=== PATIENT | female | born 1995 | race Two or more races ===

== ENCOUNTER 2016-06-13 11:46 | Outpatient (CLI) ==
[2015-04-30 21:50] VITALS: BMI 47.6
[2016-06-13 13:57] LABS: BASOPHILS # (AUTO) 0.1 K/uL (0-0.2); BASOPHILS % (AUTO) 0.4 % (0.0-3.0); EOSINOPHILS # (AUTO) 0.7 K/ul (0.0-0.7); EOSINOPHILS % (AUTO) 5.5 % (0.0-7.0); HEMATOCRIT 40.7 % (37.0-47.0); HEMOGLOBIN 12.7 g/dl (12.0-16.0); IMMATURE GRANULOCYTE % (AUTO) 0.3 % (0.0-5.0); LYMPHOCYTES # (AUTO) 3.2 K/uL (0.60-3.4); LYMPHOCYTES % (AUTO) 26.2 (10.0-50.0); MEAN CORPUSCULAR HEMOGLOBIN 22.5 pg (27.0-31.0); MEAN CORPUSCULAR HGB CONC 31.2 (31.8-35.4); MONOCYTES # (AUTO) 0.8 K/uL (0.4-2.0); MONOCYTES % (AUTO) 6.3 (0-10); NEUTROPHILS # (AUTO) 7.5 K/ul (2.0-6.9); NEUTROPHILS % (AUTO) 61.3; PLATELET COUNT 316 10^3/uL (140-440); RED BLOOD COUNT 5.65 10^6/ul (4.20-5.40); WHITE BLOOD COUNT 12.29 K/ul (4.6-10.2)
[2016-06-13 14:32] LABS: ALBUMIN/GLOBULIN RATIO 0.89; ANION GAP 17.2; BILIRUBIN,TOTAL 0.31 mg/dL (0.00-1.20); BUN/CREATININE RATIO 21.25; CALCIUM 10.5 mg/dL (8.2-10.2); CHOL/HDL RATIO 3.1 (4.5-5.5); CREATININE 0.8 mg/dL (0.60-1.30); POTASSIUM 4.2 mmol/L (3.5-5.10); TOTAL PROTEIN 8.5 g/dL (6.4-8.2)
== END 2016-06-13 11:47 | disposition home or self-care (01) ==
LOC: LAB 11:46
PROVIDERS: ATTEND Nurse Practitioner Family
DX: E66.9 Obesity, unspecified (principal)
CPT/HCPCS: 36415; 80053; 80061; 84439; 84443; 85025

== ENCOUNTER 2016-10-08 17:18 | Emergency (ER) ==
[2016-10-08 17:27] VITALS: BP 125/80; TEMP 98.1; BMI 45.1
[2016-10-08] MEDS ORDERED: DUONEB NEB STA (17:38)
[2016-10-08 17:59] LABS: BILIRUBIN,URINE Negative (NEGATIVE); KETONES,URINE Negative (NEGATIVE); LEUKOCYTE ESTERASE ,URINE Negative (NEGATIVE); NITRITE,URINE Negative (NEGATIVE); PH,URINE 5.5 (5-9); PROTEIN,URINE Negative (NEGATIVE); URINE, BLOOD 2+ (NEGATIVE)
--- NOTE | 2016-10-08 18:00 | ED.PDOC ---
General ED Provider: Dr. ROXANNE VIDAL Chief Complaint: Shortness of Air Stated Complaint: cough for the past few days with some difficulty breathing. chest pain from the cough. was seen int he clinic for abdominal pain that she has had for week.s She told she had an ulcer and given some medicatins but has not helped. Time Seen by Physician: 17:25 Mode of Arrival: Walk-In Information Source: Patient Exam Limitations: No limitations [facility] and T[facility] Documentation Reviewed and Agree: Yes Respiratory Complaint Exam - Respiratory Complaint/Exam Onset/Duration: 2 days Symptoms Are: Still present Timing: Intermittent Initial Severity: Moderate Current Severity: Moderate Location: Chest Character: Reports: Productive cough Aggravating: Reports: URI, Weather Alleviating: Reports: None Associated Signs and Symptoms: Reports: Dyspnea, URI Related History: Denies: Similar episode History of Healthcare-Acquired Pneumonia: No Related Surgical History: Reports: None Pulmonary Embolism Risk Factors: None Cardiac Risk Factors: Reports: None Pseudomonas Risk Factors: Reports: None Tuberculosis Risk Factors: Reports: None Status Asthmaticus Risk Factors: Reports: None Home Oxygen Use: No Recent Stress Test: No Recent Echo/LV Function: No Current Antibiotic Use: No Current Asthma Medication Use: No Respiratory Distress: Mild Inadequate Respiratory Effort: No Dysphagia Present: No Stridor Present: No JVD Present: No Accessory Muscle Use: No Retractions: Not Present Diminished Breath Sounds: Yes Sinus Tenderness: None Grunting Respirations: No Kussmaul Respirations: No Differential Diagnoses: Asthma, Pneumonia, Bronchitis Review of Systems - Review Of Systems Constitutional: Reports: No symptoms Eyes: Reports: No symptoms Ears, Nose, Mouth, Throat: Reports: No symptoms Respiratory: Reports: Cough, Short of air, Wheezing Cardiac: Reports: Chest pain (with cough only. ) GI: Reports: Abdominal pain : Reports: No symptoms Musculoskeletal: Reports: No symptoms Skin: Reports: No symptoms Neurological: Reports: No symptoms Endocrine: Reports: No symptoms Hematologic/Lymphatic: Reports: No symptoms All Other Systems: Reviewed and Negative Past Medical History - Past Medical History Endocrine: Reports: None Cardiovascular: Reports: None Respiratory: Reports: Asthma Hematological: Reports: None Gastrointestinal: Reports: GERD Genitourinary: Reports: None Neuro/Psych: Reports: None Musculoskeletal: Reports: None Cancer: Reports: None Last Menstrual Period: last month - Surgical History General Surgical History: Reports: Tonsillectomy, Other (CYST/OVARY) - Family History Family History: Reports: Unknown - Social History Smoking Status: Current some day smoker Hx Substance Use: No Alcohol Screening: Occasionally - Immunizations Tetanus Shot up to Date: Yes Physical Exam - Physical Exam Appearance: Obese Ill-appearing: Moderate Pain Distress: Mild Eyes: MAXWELL, EOMI, Conjunctiva clear ENT: Ears normal, Nose normal, Oropharynx normal Neck: Supple Respiratory: Airway patent, Breath sounds equal, Respirations nonlabored, Wheezes GI/: Soft, Nontender, No masses, Bowel sounds normal, No Organomegaly Musculoskeletal: Normal strength, ROM intact, No edema, No calf tenderness Skin: Warm Neurological: Sensation intact, Motor intact, Reflexes intact, Cranial nerves intact, Alert, Oriented Psychiatric: Anxious Interpretation - Radiology Interpretation Radiology Interpretation By: Radiologist Radiology Results: Negative Exam Interpreted: CT Scan Critical Care Note - Critical Care Note Total Time (mins): 0 Course - Course Hematology/Chemistry: 10/08/16 17:50 10/08/16 17:50 Orders, Labs, Meds: Lab Review 10/08/16 17:50 WBC 9.03 RBC 5.44 H Hgb 12.2 Hct 39.3 MCV 72.2 L MCH 22.4 L MCHC 31.0 L RDW Coeff of Natty 15.9 H Plt Count 256 Immature Gran % (Auto) 0.3 Neut % (Auto) 58.5 Lymph % (Auto) 31.1 [place] % (Auto) 7.1 Eos % (Auto) 2.4 Baso % (Auto) 0.6 Immature Gran # (Auto) 0.0 Neut # 5.3 Lymph # 2.8 [place] # 0.6 Eos # 0.2 Baso # 0.1 D-Dimer (Manual) 367.97 Sodium 140 Potassium 4.1 Chloride 104 Carbon Dioxide 24 Anion Gap 16.1 BUN 14 Creatinine 0.77 Estimated GFR (MDRD) 95.00 BUN/Creatinine Ratio 18.18 Glucose 79 Calcium 9.8 Total Bilirubin 0.31 AST 26 ALT 22 Alkaline Phosphatase 75 Total Protein 8.4 H Albumin 4.1 Globulin 4.3 Albumin/Globulin Ratio 0.95 Amylase 31 Lipase 33 Serum , Qual Negative Urine Color Yellow Urine Clarity Clear Urine pH 5.5 Ur Specific [place] >=1.030 Urine Protein Negative Urine Glucose (UA) Negative Urine Ketones Negative Urine Blood 2+ Urine Nitrite Negative Urine Bilirubin Negative Urine Urobilinogen 0.2 Ur Leukocyte Esterase Negative Urine Microscopic RBC 0-2 Ur Squamous Epith Cells Not present Orders Category Date Time Status NEBULIZER TREATMENT Stat CARDIO 10/08/16 17:38 Completed AMYLASE Stat LAB 10/08/16 17:50 Completed CBC W/ AUTO DIFF Stat LAB 10/08/16 17:50 Completed COMPREHENSIVE METABOLIC PANEL Stat LAB 10/08/16 17:50 Completed D-DIMER Stat LAB 10/08/16 17:50 Completed HCG QUALITATIVE [SERUM ] Stat LAB 10/08/16 17:50 Completed LIPASE Stat LAB 10/08/16 17:50 Completed UA [URINALYSIS C & S IF INDICATED] Stat LAB 10/08/16 17:50 Completed Azithromycin [Zithromax] MEDS 10/08/16 19:02 Discontinued 500 mg PO ONCE STA Ipratropium/Albuterol Neb [Duoneb] MEDS 10/08/16 17:38 Discontinued 1 vial NEB ONCE STA Prednisone MEDS 10/08/16 19:09 Discontinued 40 mg PO ONCE STA CT ABD/PEL WO RENAL STONE PROT Stat RADS 10/08/16 17:[address] CHEST W/O CONTRAST Stat RADS 10/08/16 17:41 Completed Medications Discontinued Medications Generic Name Dose Route Start Last Admin Trade Name Anthony PRN Reason Stop Dose Admin Albuterol/Ipratropium 1 vial 10/08/16 17:38 10/08/16 18:03 Duoneb NEB 10/08/16 17:39 1 vial ONCE STA Administration Azithromycin 500 mg 10/08/16 19:02 10/08/16 19:09 Zithromax PO 10/08/16 19:03 500 mg ONCE STA Administration Prednisone 40 mg 10/08/16 19:09 10/08/16 19:15 Prednisone PO 10/08/16 19:10 40 mg ONCE STA Administration Vital Signs: Temp Pulse Resp BP Pulse Ox 10/08/16 17:20 98.1 F 94 H 20 125/80 96 Departure - Departure Time of Disposition: 19:10 Disposition: HOME SELF-CARE Discharge Problem: Bronchitis Instructions: Acute Bronchitis (ED) Condition: Stable Pt referred to PMD for follow-up: Yes Additional Instructions: quit smoking Take medications as prescribed Follow up with PCP in 3 days Prescriptions: Azithromycin [Zithromax] 250 mg PO DIRECTED #4 tablet Methylprednisolone [Medrol Dosepak] 4 mg PO DIRECTED #1 pkg Allergies/Adverse Reactions: Allergies drospirenone [From Cheli (28)] Adverse Reaction (Verified 10/08/16 17:27) ethinyl estradiol [From Cheli (28)] Adverse Reaction (Verified 10/08/16 17:27) Home Medications: Ambulatory Orders Azithromycin [Zithromax] 250 mg PO DIRECTED #4 tablet 10/08/16 Methylprednisolone [Medrol Dosepak] 4 mg PO DIRECTED #1 pkg 10/08/16 Disposition Discussed With: Patient
[2016-10-08 18:02] LABS: BASOPHILS # (AUTO) 0.1 K/uL (0-0.2); BASOPHILS % (AUTO) 0.6 % (0.0-3.0); EOSINOPHILS # (AUTO) 0.2 K/ul (0.0-0.7); EOSINOPHILS % (AUTO) 2.4 % (0.0-7.0); HEMATOCRIT 39.3 % (37.0-47.0); HEMOGLOBIN 12.2 g/dl (12.0-16.0); IMMATURE GRANULOCYTE % (AUTO) 0.3 % (0.0-5.0); LYMPHOCYTES # (AUTO) 2.8 K/uL (0.60-3.4); LYMPHOCYTES % (AUTO) 31.1 (10.0-50.0); MEAN CORPUSCULAR HEMOGLOBIN 22.4 pg (27.0-31.0); MEAN CORPUSCULAR VOLUME 72.2 fl (81.0-99.0); MONOCYTES # (AUTO) 0.6 K/uL (0.4-2.0); MONOCYTES % (AUTO) 7.1 (0-10); NEUTROPHILS # (AUTO) 5.3 K/ul (2.0-6.9); NEUTROPHILS % (AUTO) 58.5; PLATELET COUNT 256 10^3/uL (140-440); RED BLOOD COUNT 5.44 10^6/ul (4.20-5.40); WHITE BLOOD COUNT 9.03 K/ul (4.6-10.2)
[2016-10-08 18:05] LABS: ADD URINE MICROSCOPIC YES
[2016-10-08 18:13] LABS: SERUM PREGNANCY INTERNAL QC INTERNAL QC VALID
[2016-10-08 18:17] LABS: ALBUMIN 4.1 g/dL (3.4-5.0); ALBUMIN/GLOBULIN RATIO 0.95; ANION GAP 16.1; BILIRUBIN,TOTAL 0.31 mg/dL (0.00-1.20); BUN/CREATININE RATIO 18.18; CALCIUM 9.8 mg/dL (8.2-10.2); CREATININE 0.77 mg/dL (0.60-1.30); POTASSIUM 4.1 mmol/L (3.5-5.10); TOTAL PROTEIN 8.4 g/dL (6.4-8.2)
--- NOTE | 2016-10-08 18:57 | CT ---
EXAM: CT of the chest without contrast. HISTORY: Chest pain. PROCEDURE: Contiguous axial CT images of the chest without contrast with coronal and sagittal refor mats. FINDINGS: There is motion artifact which limits the exam. The heart is within normal limits in size . The thoracic aorta is normal in appearance. No infiltrate or consolidation. The bones and soft t issues are unremarkable. The adrenal glands and visualized portion of the liver are normal in appear ance. Impression: Negative CT of the chest.
--- NOTE | 2016-10-08 19:01 | CT ---
EXAM: CT abdomen pelvis without contrast HISTORY: Abdominal pain COMPARISON: 01/17/2015 TECHNIQUE: CT abdomen pelvis performed without intravenous contrast. Coronal and sagittal reformat miguelangle images obtained. FINDINGS: Please see separate report CT chest regarding findings in the lower chest. No free air. No acute abnormalities of the bones. There is mild degenerative change in the spine. Evaluation o rgan parenchyma limited without contrast. Liver appears normal. Gallbladder appears normal. Pancr eas appears normal. Spleen appears normal. Adrenals appear normal. Aorta normal in caliber. Uter us appears normal. Stomach appears normal. No dilated loops small bowel. Appendix appears normal. Colon unremarkable. Small fat-containing umbilical hernia. Probable punctate left renal calculus , coronal image 75. No hydronephrosis. No calculi visualized in the normal course of the ureters. Bladder decompressed and poorly evaluated. No ascites. Increase number of normal-sized mesenteric lymph nodes may represent mild mesenteric adenitis, unchanged Small fat-containing umbilical hernia. IMPRESSION: 1. No acute inflammatory process identified in the abdomen or pelvis. 2. Possible punctate left nephrolithiasis. No hydronephrosis. 3. 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
[2016-10-08] MEDS ORDERED: ZITHROMAX PO STA (19:02)
[2016-10-08] MEDS ORDERED: PREDNISONE PO STA (19:09)
== END 2016-10-08 19:26 | disposition home or self-care (01) ==
LOC: ED 17:18
DX: J20.9 Acute bronchitis, unspecified (principal); F17.210 Nicotine dependence, cigarettes, uncomplicated
CPT/HCPCS: 36415; 74176; 80053; 81001; 82150; 83690; 84703; 85025; 85379; 94640; 99284

== ENCOUNTER 2017-01-20 12:23 | Outpatient (CLI) ==
[2017-01-20 12:32] LABS: BASOPHILS % (AUTO) 0.4 % (0.0-3.0); EOSINOPHILS # (AUTO) 0.4 K/ul (0.0-0.7); EOSINOPHILS % (AUTO) 4.5 % (0.0-7.0); HEMATOCRIT 37.2 % (37.0-47.0); HEMOGLOBIN 11.6 g/dl (12.0-16.0); IMMATURE GRANULOCYTE % (AUTO) 0.1 % (0.0-5.0); LYMPHOCYTES % (AUTO) 24.6 (10.0-50.0); MEAN CORPUSCULAR HEMOGLOBIN 22.6 pg (27.0-31.0); MEAN CORPUSCULAR HGB CONC 31.2 (31.8-35.4); MEAN CORPUSCULAR VOLUME 72.5 fl (81.0-99.0); MONOCYTES # (AUTO) 0.5 K/uL (0.4-2.0); MONOCYTES % (AUTO) 5.9 (0-10); NEUTROPHILS # (AUTO) 5.3 K/ul (2.0-6.9); NEUTROPHILS % (AUTO) 64.5; PLATELET COUNT 250 10^3/uL (140-440); RED BLOOD COUNT 5.13 10^6/ul (4.20-5.40); WHITE BLOOD COUNT 8.17 K/ul (4.6-10.2)
[2017-01-20 12:47] LABS: ALBUMIN 3.5 g/dL (3.4-5.0); ALBUMIN/GLOBULIN RATIO 0.81; ANION GAP 12.9; BILIRUBIN,TOTAL 0.24 mg/dL (0.00-1.20); BUN/CREATININE RATIO 16.66; CALCIUM 9.9 mg/dL (8.2-10.2); CREATININE 0.72 mg/dL (0.60-1.30); POTASSIUM 3.9 mmol/L (3.5-5.10); TOTAL PROTEIN 7.8 g/dL (6.4-8.2)
== END 2017-01-20 12:24 | disposition home or self-care (01) ==
LOC: LAB 12:23
PROVIDERS: ATTEND Nurse Practitioner Family
DX: N93.9 Abnormal uterine and vaginal bleeding, unspecified (principal)
CPT/HCPCS: 36415; 80053; 85025

== ENCOUNTER 2017-02-21 17:12 | Emergency (ER) ==
[2017-02-21 17:16] VITALS: BP 145/94; TEMP 97.7; BMI 49.2
[2017-02-21 19:06] LABS: SERUM PREGNANCY INTERNAL QC INTERNAL QC VALID
[2017-02-21 19:36] LABS: BASOPHILS # (AUTO) 0.1 K/uL (0-0.2); BASOPHILS % (AUTO) 0.4 % (0.0-3.0); EOSINOPHILS # (AUTO) 0.4 K/ul (0.0-0.7); EOSINOPHILS % (AUTO) 3.8 % (0.0-7.0); HEMATOCRIT 37.5 % (37.0-47.0); HEMOGLOBIN 11.7 g/dl (12.0-16.0); IMMATURE GRANULOCYTE % (AUTO) 0.3 % (0.0-5.0); LYMPHOCYTES # (AUTO) 3.2 K/uL (0.60-3.4); LYMPHOCYTES % (AUTO) 27.6 (10.0-50.0); MEAN CORPUSCULAR HEMOGLOBIN 22.6 pg (27.0-31.0); MEAN CORPUSCULAR HGB CONC 31.2 (31.8-35.4); MEAN CORPUSCULAR VOLUME 72.4 fl (81.0-99.0); MONOCYTES # (AUTO) 0.8 K/uL (0.4-2.0); MONOCYTES % (AUTO) 6.5 (0-10); NEUTROPHILS # (AUTO) 7.1 K/ul (2.0-6.9); NEUTROPHILS % (AUTO) 61.4; PLATELET COUNT 269 10^3/uL (140-440); RED BLOOD COUNT 5.18 10^6/ul (4.20-5.40); WHITE BLOOD COUNT 11.65 K/ul (4.6-10.2)
--- NOTE | 2017-02-21 19:51 | ED.PDOC ---
General ED Provider: Dr. ROXANNE VIDAL Chief Complaint: Vaginal Bleeding Stated Complaint: Patient states that she started her period 2 days ago with spotting, Then yesterday it got heavy and used 7 pads yesterday and 8 pads today. Denies seeing any clots ro tissue. She states that she takes Metformin daily. she is sexually active and does not use any contraceptives. Time Seen by Physician: 19:00 Mode of Arrival: Walk-In Information Source: Patient Exam Limitations: No limitations Primary Care Provider: [facility] Nursing and Triage Documentation Reviewed and Agree: Yes Complaint Exam - UTI Female Complaint/Exam : 0 Para: 0 Hx Total # of Abortions (Spontaneous & Elective): 0 Review of Systems - Review Of Systems Constitutional: Reports: No symptoms Eyes: Reports: No symptoms Ears, Nose, Mouth, Throat: Reports: No symptoms Respiratory: Reports: No symptoms Cardiac: Reports: No symptoms GI: Reports: Abdominal pain (Like her periods. ) : Reports: Other (vaginal bleeding ) Musculoskeletal: Reports: No symptoms Skin: Reports: No symptoms Neurological: Reports: No symptoms Endocrine: Reports: No symptoms Hematologic/Lymphatic: Reports: No symptoms All Other Systems: Reviewed and Negative Past Medical History - Past Medical History Endocrine: Reports: None Cardiovascular: Reports: None Respiratory: Reports: Asthma Hematological: Reports: None Gastrointestinal: Reports: GERD Genitourinary: Reports: None Neuro/Psych: Reports: None Musculoskeletal: Reports: None Cancer: Reports: None Last Menstrual Period: NOW Other Pertinent Past Medical History: PCOS - Surgical History General Surgical History: Reports: Tonsillectomy, Other (CYST/OVARY) - Family History Family History: Reports: Unknown - Social History Smoking Status: Current some day smoker Hx Substance Use: No Alcohol Screening: Occasionally Physical Exam - Physical Exam Appearance: Ill-appearing, Obese Ill-appearing: Mild Pain Distress: Moderate Eyes: MAXWELL, EOMI, Conjunctiva clear ENT: Oropharynx normal Respiratory: Airway patent, Breath sounds clear, Breath sounds equal, Respirations nonlabored Cardiovascular: RRR, Pulses normal, No rub, No murmur GI/: Soft, No masses, Bowel sounds normal, No Organomegaly, Tender ( suprapubic area ) Musculoskeletal: Normal strength, ROM intact, No edema, No calf tenderness Skin: Warm, Dry, Normal color Neurological: Sensation intact, Motor intact, Reflexes intact, Alert, Oriented Psychiatric: Affect appropriate, Mood appropriate Critical Care Note - Critical Care Note Total Time (mins): 0 Course - Course Hematology/Chemistry: 02/21/17 18:45 Orders, Labs, Meds: Lab Review 02/21/17 02/21/17 18:45 18:48 WBC 11.65 H RBC 5.18 Hgb 11.7 L Hct 37.5 MCV 72.4 L MCH 22.6 L MCHC 31.2 L RDW Coeff of Natty 15.9 H Plt Count 269 Immature Gran % (Auto) 0.3 Neut % (Auto) 61.4 Lymph % (Auto) 27.6 [place] % (Auto) 6.5 Eos % (Auto) 3.8 Baso % (Auto) 0.4 Immature Gran # (Auto) 0.0 Neut # 7.1 H Lymph # 3.2 [place] # 0.8 Eos # 0.4 Baso # 0.1 Serum , Qual Negative Orders Category Date Time Status CBC W/ AUTO DIFF Stat LAB 02/21/17 18:45 Completed SERUM TEST [SERUM ] Stat LAB 02/21/17 18:48 Completed Vital Signs: Temp Pulse Resp BP Pulse Ox 02/21/17 17:12 97.7 F 97 H 20 145/94 H 98 Departure - Departure Time of Disposition: 19:49 Disposition: HOME SELF-CARE Discharge Problem: Bleeding from vagina, Dysmenorrhea Instructions: Dysfunctional Uterine Bleeding (ED), Dysmenorrhea (ED) Condition: Fair Pt referred to PMD for follow-up: Yes Additional Instructions: Follow up with PCP in 3 day with PCP or OBGYN. Return if worse. Allergies/Adverse Reactions: Allergies drospirenone [From Cheli (28)] Adverse Reaction (Verified 02/21/17 17:16) ethinyl estradiol [From Cheli (28)] Adverse Reaction (Verified 02/21/17 17:16) Home Medications: Ambulatory Orders Control 1 tab PO DAILY 01/20/17 Montelukast Sodium [Singulair] 10 mg PO DAILY 01/20/17 Metformin HCl [Metformin HCl ER] 500 mg PO BID 02/21/17 Disposition Discussed With: Patient, Family
== END 2017-02-21 20:00 | disposition home or self-care (01) ==
LOC: ED 17:12
DX: N94.6 Dysmenorrhea, unspecified (principal); N93.8 Other specified abnormal uterine and vaginal bleeding; F17.210 Nicotine dependence, cigarettes, uncomplicated
CPT/HCPCS: 36415; 84703; 85025; 99282

== ENCOUNTER 2017-05-03 08:25 | Outpatient (CLI) ==
--- NOTE | 2017-05-03 10:00 | CT ---
EXAM: CT ABDOMEN AND PELVIS HISTORY: Right upper abdominal tenderness TECHNIQUE: CT abdomen and pelvis with and without intravenous contrast. Images were reconstructed u sing 5 mm section thickness. Reformations were prepared. 75 mL Omnipaque. COMPARISON: 01/17/2015 FINDINGS: The liver, spleen, gallbladder, pancreas and adrenal glands appear normal. There is a punctate 2 mm calcification in the upper left kidney which could represent a renal stone. The kidneys were otherwi se unremarkable with no hydronephrosis and there was normal contrast enhancement. The ureters are cl ear. Normal abdominal aorta. Stomach is unremarkable. Normal appendix. Normal bowel gas pattern. The uterus is normal. Mildly p rominent left ovary suggesting several small follicles. Urinary bladder is normal. There is no asci santhosh or inflammatory infiltration of the abdominal fat. Ventral abdominal wall is intact without herniation. There are mild degenerative endplate changes of the thoracic spine, somewhat unusual for age although stable since previous exam. Lung bases are anjali ar. No pneumoperitoneum. IMPRESSION: 1. No acute intra-abdominal or pelvic abnormality or obvious etiology for the patient's symptoms. 2. Tiny left renal calculus without hydronephrosis or ureteral obstruction. 3. There are mild degenerative endplate changes of the thoracic spine, somewhat unusual for age alth ough stable since previous exam.
== END 2017-05-03 08:26 | disposition home or self-care (01) ==
LOC: RAD 08:25
PROVIDERS: ATTEND Nurse Practitioner Family
DX: R10.811 Right upper quadrant abdominal tenderness (principal); R10.9 Unspecified abdominal pain; R11.0 Nausea
CPT/HCPCS: 36415; 80053; 81001; 81025; 82150; 83690; 85025; 86677

== ENCOUNTER 2017-12-05 07:49 | Emergency (ER) ==
[2017-12-05 07:57] VITALS: BP 134/85; TEMP 95.8; BMI 34.2
--- NOTE | 2017-12-05 08:21 | ED.PDOC ---
General ED Provider: Dr. ODALIS CORBIN Chief Complaint: Abdominal Pain Stated Complaint: Abdominal pain -. Located mid epigastrium moving into Lt upper and lower quadrant. Mildly nausea. Onset X 4 days. Last menses 2 months. Pain similar to previous Renal stone on Rt side Time Seen by Physician: 08:10 Mode of Arrival: Walk-In Information Source: Patient Exam Limitations: No limitations [facility] Documentation Reviewed and Agree: Yes Does patient meet sepsis criteria?: No System Inflammatory Response Syndrome: Not Applicable Sepsis Protocol: For patient's 13 years and over: Temp is 96.8 and below OR 101 and greater Pulse >90 BPM Resp >20/minute Acutely Altered Mental Status Are patient's symptoms suggestive of a new infection, such as: -Pneumonia -Skin, Soft Tissue -Endocarditis -UTI -Bone, Joint Infection -Implantable Device -Acute Abdominal Infection -Wound Infection -Meningitis -Blood Stream Catheter Infection -Unknown GI Complaint Exam - Abdominal Pain Complaint/Exam Onset: Gradual Duration: 24 hrs Symptoms Are: Still present Timing: Constant Initial Severity: Moderate Current Severity: Moderate Location of Pain: LUQ, Epigastric Radiates To: Reports: Flank Character: Reports: Aching, Throbbing, Cramping, Colicky Aggravating: Reports: None Alleviating: Reports: Rest Associated Signs and Symptoms: Reports: Diaphoresis, Back pain, Nausea Related History: Reports: Similar episode AAA Risk Factors: Reports: None Cardiac Risk Factors: Reports: None Ectopic Risk Factors: Reports: None Ovarian Torsion Risk Factors: Reports: None Surgical Obstruction Risk Factors: Reports: None Related Surgical History: Reports: None Abdominal Findings: Present: CVA Tenderness (lt flank tenderness), Other Differential Diagnoses: Renal Colic, Ureteral Stone Review of Systems - Review Of Systems Constitutional: Reports: Loss of appetite Eyes: Reports: No symptoms Ears, Nose, Mouth, Throat: Reports: No symptoms Respiratory: Reports: No symptoms Cardiac: Reports: No symptoms GI: Reports: Abdominal pain, Nausea : Reports: Flank pain Musculoskeletal: Reports: No symptoms Skin: Reports: No symptoms Neurological: Reports: No symptoms Endocrine: Reports: No symptoms Hematologic/Lymphatic: Reports: No symptoms All Other Systems: Reviewed and Negative Past Medical History - Past Medical History Endocrine: Reports: None Cardiovascular: Reports: None Respiratory: Reports: Asthma Hematological: Reports: None Gastrointestinal: Reports: GERD Genitourinary: Reports: None Neuro/Psych: Reports: None Musculoskeletal: Reports: None Cancer: Reports: None Last Menstrual Period: 2 months Other Pertinent Past Medical History: PCOS - Surgical History General Surgical History: Reports: Tonsillectomy, Other (CYST/OVARY) - Family History Family History: Reports: Unknown - Social History Smoking Status: Current every day smoker, Light tobacco smoker Hx Substance Use: No Alcohol Screening: Occasionally Physical Exam - Physical Exam Appearance: Ill-appearing, Obese Ill-appearing: Moderate Pain Distress: Severe Eyes: MAXWELL, EOMI, Conjunctiva clear ENT: Ears normal, Nose normal, Oropharynx normal Respiratory: Airway patent, Breath sounds clear, Breath sounds equal, Respirations nonlabored Cardiovascular: RRR, Pulses normal, No rub, No murmur GI/: Soft, Tender, Bowel sounds hypoactive Musculoskeletal: Normal strength, ROM intact, No edema, No calf tenderness Skin: Warm, Dry, Normal color Neurological: Sensation intact, Motor intact, Reflexes intact, Cranial nerves intact, Alert, Oriented Psychiatric: Affect appropriate, Mood appropriate Interpretation - Radiology Interpretation Radiology Interpretation By: Radiologist Radiology Results: Positive (lt ureteral stone) Critical Care Note - Critical Care Note Total Time (mins): 0 Course - Course Hematology/Chemistry: 12/05/17 08:32 12/05/17 08:32 Orders, Labs, Meds: Lab Review 12/05/17 12/05/17 12/05/17 08:05 08:09 08:26 WBC RBC Hgb Hct MCV MCH MCHC RDW Coeff of Natty Plt Count Immature Gran % (Auto) Neut % (Auto) Lymph % (Auto) [place] % (Auto) Eos % (Auto) Baso % (Auto) Immature Gran # (Auto) Neut # (Auto) Lymph # (Auto) [place] # (Auto) Eos # (Auto) Baso # (Auto) Sodium Potassium Chloride Carbon Dioxide Anion Gap BUN Creatinine Estimated GFR (MDRD) BUN/Creatinine Ratio Glucose Calcium Total Bilirubin AST ALT Alkaline Phosphatase Total Protein Albumin Globulin Albumin/Globulin Ratio Lipase Urine Color [place] Urine Clarity Cloudy Urine pH 5.5 Ur Specific [place] >=1.030 Urine Protein 2+ Urine Glucose (UA) Negative Urine Ketones Trace Urine Blood 3+ Urine Nitrite Negative Urine Bilirubin 1+ Urine Urobilinogen 0.2 Ur Leukocyte Esterase Negative Urine Microscopic RBC Tntc Ur Squamous Epith Cells Not present Urine Test Negative Urine Opiates Screen Negative Ur Oxycodone Screen Negative Urine Methadone Screen Negative Ur Propoxyphene Screen Negative Ur Barbiturates Screen Negative U Tricyclic Antidepress Negative Ur Phencyclidine Scrn Negative Ur Amphetamine Screen Negative U Methamphetamines Scrn Negative U Benzodiazepines Scrn Negative Urine Cocaine Screen Negative U Cannabinoids Screen Positive 12/05/17 12/05/17 08:32 08:32 WBC 11.05 H RBC 5.39 Hgb 11.6 L Hct 38.0 MCV 70.5 L MCH 21.5 L MCHC 30.5 L RDW Coeff of Natty 16.3 H Plt Count 241 Immature Gran % (Auto) 0.3 Neut % (Auto) 64.1 Lymph % (Auto) 26.4 [place] % (Auto) 6.2 Eos % (Auto) 2.6 Baso % (Auto) 0.4 Immature Gran # (Auto) 0.0 Neut # (Auto) 7.1 H Lymph # (Auto) 2.9 [place] # (Auto) 0.7 Eos # (Auto) 0.3 Baso # (Auto) 0.0 Sodium 137 Potassium 3.9 Chloride 102 Carbon Dioxide 26 Anion Gap 12.9 BUN 15 Creatinine 0.85 Estimated GFR (MDRD) 84.00 BUN/Creatinine Ratio 17.64 Glucose 96 Calcium 10.0 Total Bilirubin 0.6 AST 20 ALT 18 Alkaline Phosphatase 74 Total Protein 8.0 Albumin 3.7 Globulin 4.3 Albumin/Globulin Ratio 0.86 Lipase 28 Urine Color Urine Clarity Urine pH Ur Specific [place] Urine Protein Urine Glucose (UA) Urine Ketones Urine Blood Urine Nitrite Urine Bilirubin Urine Urobilinogen Ur Leukocyte Esterase Urine Microscopic RBC Ur Squamous Epith Cells Urine Test Urine Opiates Screen Ur Oxycodone Screen Urine Methadone Screen Ur Propoxyphene Screen Ur Barbiturates Screen U Tricyclic Antidepress Ur Phencyclidine Scrn Ur Amphetamine Screen U Methamphetamines Scrn U Benzodiazepines Scrn Urine Cocaine Screen U Cannabinoids Screen Orders Category Date Time Status EKG-(ED ONLY) Stat CARDIO 12/05/17 08:23 Completed NPO REMINDER: IMAGING ONCE CARE 12/05/17 08:23 Completed IV [ED IV/MEDIPORT/POWERPORT] .ONCE EMERGENCY 12/05/17 08:23 Active CBC W/ AUTO DIFF Stat LAB 12/05/17 08:32 Completed CMP [COMPREHENSIVE METABOLIC PANEL] Stat LAB 12/05/17 08:32 Completed LIPASE Stat LAB 12/05/17 08:32 Completed URINALYSIS C & S IF INDICATED Stat LAB 12/05/17 08:05 Completed URINE DRUG SCREEN (RAPID FOR ED) [DRUG SCREEN, URINE, LAB 12/05/17 08:26 Completed RAPID] Stat URINE Stat LAB 12/05/17 08:09 Completed 0.9 % Sodium Chloride [Saline Flush] MEDS 12/05/17 08:22 Active 1 syr IVF PRN PRN Ketorolac Tromethamine [Toradol] MEDS 12/05/17 08:26 Discontinued 30 mg IVP ONCE STA Sodium Chloride 0.9% [Sodium Chloride] 1,000 ml MEDS 12/05/17 08:24 Discontinued IV BOLUS Tamsulosin HCl [Flomax] MEDS 12/05/17 09:43 Stat 0.4 mg PO ONCE STA CT ABD/PEL WO RENAL STONE PROT Stat RADS 12/05/17 08:37 Completed Medications Generic Name Dose Route Start Last Admin Trade Name Freq PRN Reason Stop Dose Admin Sodium Chloride 1 syr 12/05/17 08:22 12/05/17 08:57 Saline Flush IVF 1 syr PRN PRN Administration To flush IV Discontinued Medications Generic Name Dose Route Start Last Admin Trade Name Freq PRN Reason Stop Dose Admin Sodium Chloride 1,000 mls @ 1,000 mls/hr 12/05/17 08:24 12/05/17 08:57 Sodium Chloride IV 12/05/17 09:23 1,000 mls/hr BOLUS STA Administration Ketorolac Tromethamine 30 mg 12/05/17 08:26 12/05/17 08:58 Toradol IVP 12/05/17 08:27 30 mg ONCE STA Administration Tamsulosin HCl 0.4 mg 12/05/17 09:43 Flomax PO 12/05/17 09:44 ONCE STA Vital Signs: Temp Pulse Resp BP Pulse Ox 12/05/17 07:50 95.8 F L 70 16 134/85 98 Departure - Departure Time of Disposition: 09:55 Disposition: HOME SELF-CARE Discharge Problem: Ureterolithiasis Instructions: Kidney Stones (ED) Condition: Good Pt referred to PMD for follow-up: Yes IPMP verified?: No Additional Instructions: Strain all urine for possible stone passage Retain stone if passes Take meds as directed-Flomax to ease stone passage and Toradol for pain control. See Family Physician tomorrow and obtain referral for urological consult for possible outpatient Stone removal if stone does not pass Prescriptions: Ketorolac Tromethamine [Toradol] 10 mg PO Q6H PRN #20 tablet PRN Reason: Flank pain Tamsulosin HCl [Flomax] 0.4 mg PO DAILY #7 cap.er.24h Allergies/Adverse Reactions: Allergies drospirenone [From Cheli (28)] Adverse Reaction (Verified 12/05/17 07:59) ethinyl estradiol [From Cheli (28)] Adverse Reaction (Verified 12/05/17 07:59) Home Medications: Ambulatory Orders Control 1 tab PO DAILY 01/20/17 Montelukast Sodium [Singulair] 10 mg PO DAILY 01/20/17 Ketorolac Tromethamine [Toradol] 10 mg PO Q6H PRN #20 tablet 12/05/17 Tamsulosin HCl [Flomax] 0.4 mg PO DAILY #7 cap.er.24h 12/05/17 Disposition Discussed With: Patient, Family
[2017-12-05] MEDS ORDERED: SODIUM CHLORIDE 1,000 ML IV STA (08:24)
[2017-12-05] MEDS ORDERED: TORADOL IVP STA (08:26)
--- NOTE | 2017-12-05 09:14 | CT ---
EXAM: CT ABDOMEN AND PELVIS HISTORY: Left flank/abdominal pain TECHNIQUE: CT abdomen and pelvis without intravenous contrast. Images were reconstructed using 3 mm section thickness. Reformations were prepared. COMPARISON: 10/08/2016 FINDINGS: There is a tiny upper left ureteral calculus measuring about 3 x 2 x 2 mm located essentially at the ureteropelvic junction. No other ureteral stones are seen. There is mild left hydronephrosis. No i ntrarenal calculi are identified currently. Urinary bladder is normal. No perinephric fat stranding or ascites. Within limits of this unenhanced exam, the liver and spleen appear normal. The gallbladder, pancreas and adrenal glands appear normal. Normal abdominal aorta. Stomach and appendix are normal. Bowel ga s pattern is within normal limits. Uterus is within normal limits. Ventral abdominal wall is intact . Early degenerative endplate disease at T11/T12. Lung bases are clear. No pneumoperitoneum. IMPRESSION: 1. Small calculus of the upper left ureter. 2. Early degenerative disc disease T11/T12, unusual for age.
[2017-12-05] MEDS ORDERED: FLOMAX PO STA (09:43)
[2017-12-05] MEDS ORDERED: FLOMAX PO SCH (10:00)
== END 2017-12-05 10:10 | disposition home or self-care (01) ==
LOC: ED 07:49
DX: N20.1 Calculus of ureter (principal); Z87.442 Personal history of urinary calculi; F17.210 Nicotine dependence, cigarettes, uncomplicated
CPT/HCPCS: 36415; 74176; 80053; 80306; 81001; 81025; 83690; 85025; 93005; 93010; 96361; 96374; 99283

== ENCOUNTER 2018-01-24 15:14 | Emergency (ER) ==
[2018-01-24 15:26] VITALS: BP 121/77; TEMP 96.5; BMI 50.5
[2018-01-24 15:50] LABS: URINE PREGNANCY TEST NEGATIVE (NEGATIVE)
--- NOTE | 2018-01-24 16:32 | CT ---
EXAM: CT ABDOMEN AND PELVIS HISTORY: Periumbilical pain. Patient gave a history of umbilicus leaking blood and puss. TECHNIQUE: CT abdomen and pelvis without intravenous contrast. Images were reconstructed using 3 mm section thickness. Reformations were prepared. COMPARISON: 05/03/2017 FINDINGS: Diagnostic limitations exist without including contrast enhanced images. No focal hepatic or splenic lesions. Gallbladder, pancreas and adrenal glands are within normal limits. Kidneys and ureters ar e unremarkable. Normal abdominal aorta. Stomach is normal. Normal appendix. General bowel gas pattern and appearance is within normal limit s. Uterus and urinary bladder appear normal. No ascites or inflammatory infiltration of the abdomin al fat. No significant ventral abdominal wall defect. The umbilicus demonstrates moderate skin thickening wh ich is suggestive of cellulitis given the patient's history. A small underlying abscess at this leve l is not excluded although not definitely demonstrated. No regional soft tissue gas. The bones reve al stable degenerative endplate changes of the thoracic spine, unusual for age. Lung bases are free of infiltrate. No pneumoperitoneum. IMPRESSION: 1. The umbilicus demonstrates moderate skin thickening which is suggestive of cellulitis given the p atient's history. A small underlying abscess at this level is not excluded although not definitely d emonstrated. No regional soft tissue gas. 2. Early degenerative endplate disease thoracic spine.
--- NOTE | 2018-01-24 16:46 | ED.PDOC ---
General ED Provider: Dr. TAYLA ROBERTO Chief Complaint: Wound Check Stated Complaint: periumbilical drainage and pain Time Seen by Physician: 15:30 (seen with neha lau at all times ) Mode of Arrival: Walk-In Information Source: Patient Exam Limitations: No limitations Primary Care Provider: NOEMI [facility] Nursing and Triage Documentation Reviewed and Agree: Yes Does patient meet sepsis criteria?: No If yes, has appropriate treatment been initiated?: No System Inflammatory Response Syndrome: Not Applicable Sepsis Protocol: For patient's 13 years and over: Temp is 96.8 and below OR 101 and greater Pulse >90 BPM Resp >20/minute Acutely Altered Mental Status Are patient's symptoms suggestive of a new infection, such as: -Pneumonia -Skin, Soft Tissue -Endocarditis -UTI -Bone, Joint Infection -Implantable Device -Acute Abdominal Infection -Wound Infection -Meningitis -Blood Stream Catheter Infection -Unknown GI Complaint Exam - Abdominal Pain Complaint/Exam Onset: Gradual Duration: 1 day Symptoms Are: Still present Timing: Intermittent Initial Severity: Mild Current Severity: Mild Location of Pain: Discrete (periumblical) Radiates To: Denies: Chest, Back, Flank, LLQ, RLQ, Inguinal Character: Reports: Dull Aggravating: Reports: None Alleviating: Reports: None Associated Signs and Symptoms: Denies: Diaphoresis, Fever, Cough, Chest pain, Dizziness, Back pain, Constipation, Blood in stool, Dysuria, Urinary frequency, Decreased urine output, Decreased appetite, Vaginal bleeding, Vaginal discharge , Nausea, Vomiting, Diarrhea, Sore throat, Decreased activity AAA Risk Factors: Reports: None Cardiac Risk Factors: Reports: None Ectopic Risk Factors: Reports: None Ovarian Torsion Risk Factors: Reports: Reproductive age Surgical Obstruction Risk Factors: Reports: None Related Surgical History: Reports: None Patient Rh Status: Unknown Abdominal Findings: Present: None Differential Diagnoses: Appendicitis, Bowel Obstruction, Constipation Review of Systems - Review Of Systems Constitutional: Reports: No symptoms Eyes: Reports: No symptoms Ears, Nose, Mouth, Throat: Reports: No symptoms Respiratory: Reports: No symptoms Cardiac: Reports: No symptoms GI: Reports: Abdominal pain : Reports: No symptoms Musculoskeletal: Reports: No symptoms Skin: Reports: No symptoms Neurological: Reports: No symptoms Endocrine: Reports: No symptoms Hematologic/Lymphatic: Reports: No symptoms All Other Systems: Reviewed and Negative Past Medical History - Past Medical History Previously Healthy: Yes Endocrine: Reports: None Cardiovascular: Reports: None Respiratory: Reports: Asthma Hematological: Reports: None Gastrointestinal: Reports: GERD Genitourinary: Reports: None Neuro/Psych: Reports: None Musculoskeletal: Reports: None Cancer: Reports: None Last Menstrual Period: 3 months ago Other Pertinent Past Medical History: PCOS - Surgical History General Surgical History: Reports: Tonsillectomy, Other (CYST/OVARY) - Family History Family History: Reports: Unknown - Social History Smoking Status: Current every day smoker, Light tobacco smoker Hx Substance Use: No Alcohol Screening: Occasionally Physical Exam - Physical Exam Appearance: Well-appearing, No pain distress, Well-nourished Eyes: MAXWELL, EOMI, Conjunctiva clear ENT: Ears normal, Nose normal, Oropharynx normal Respiratory: Airway patent, Breath sounds clear, Breath sounds equal, Respirations nonlabored Cardiovascular: RRR, Pulses normal, No rub, No murmur GI/: Soft, Nontender, No masses, Bowel sounds normal, No Organomegaly Musculoskeletal: Normal strength, ROM intact, No edema, No calf tenderness Skin: Warm, Dry, Normal color Neurological: Sensation intact, Motor intact, Reflexes intact, Cranial nerves intact, Alert, Oriented Psychiatric: Affect appropriate, Mood appropriate Critical Care Note - Critical Care Note Total Time (mins): 0 Course - Course Orders, Labs, Meds: Lab Review 01/24/18 15:42 Urine Test Negative Orders Category Date Time Status URINE Stat LAB 01/24/18 15:42 Completed WOUND CULTURE Stat LAB 01/24/18 15:[address] ABDOMEN/PELVIS WO CONTRAST Stat RADS 01/24/18 15:34 Completed Vital Signs: Temp Pulse Resp BP Pulse Ox 01/24/18 15:19 96.5 F L 85 20 121/77 98 Departure - Departure Time of Disposition: 16:46 Disposition: HOME SELF-CARE Discharge Problem: Cellulitis of abdominal wall Abdominal pain Qualifiers: Abdominal location: unspecified location Qualified Code(s): R10.9 - Unspecified abdominal pain Instructions: Cellulitis (ED), Abdominal Pain (ED) Condition: Good Pt referred to PMD for follow-up: Yes IPMP verified?: No Prescriptions: Amoxicillin 500 mg PO Q6HR #30 tablet Ciprofloxacin HCl [Cipro] 500 mg PO BID #10 tablet Allergies/Adverse Reactions: Allergies drospirenone [From Cheli (28)] Adverse Reaction (Verified 10/17/18 15:26) ethinyl estradiol [From Cheli (28)] Adverse Reaction (Verified 01/24/18 15:26) Home Medications: Ambulatory Orders Control 1 tab PO DAILY 01/20/17 Montelukast Sodium [Singulair] 10 mg PO DAILY 01/20/17 Amoxicillin 500 mg PO Q6HR #30 tablet 01/24/18 Ciprofloxacin HCl [Cipro] 500 mg PO BID #10 tablet 01/24/18
== END 2018-01-24 16:55 | disposition home or self-care (01) ==
LOC: ED 15:14
DX: L03.311 Cellulitis of abdominal wall (principal); F17.210 Nicotine dependence, cigarettes, uncomplicated
CPT/HCPCS: 81025; 87070; 99283